=== PATIENT | male | born 1985 | race Caucasian/White ===

== ENCOUNTER 2020-07-16 11:40 | Emergency (ER) | payer OTHER, BC ==
[~2020-07-16] VITALS: Ht 182.8 cm; Wt 140.6 kg
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
--- NOTE | 2020-07-16 12:38 | Diagnostic Imaging Report ---
INDICATION: Chest wall pain. COMPARISON: None FINDINGS: Two frontal radiographic views of the chest were obtained and demonstrate normal heart size and pulmonary vascularity. The lungs are well aerated and clear. No large pleural effusion or pneumothorax is seen. The visualized osseous structures show no acute abnormalities. IMPRESSION: 1. No acute cardiopulmonary process. Dictated by: Dictated on workstation # [id number]
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
[2020-07-16] MEDS ORDERED: TRM50T PO (14:17)
[2020-07-16] MEDS ORDERED: CYCL10TA9 PO (14:17)
[2020-07-16 14:30] VITALS: BP 149/79
== END 2020-07-16 14:29 | disposition home or self-care (01) ==
LOC: ER FS 11:42
DX: S06.0X9A Concussion with loss of consciousness of unspecified duration, initial encounter (principal); S43.402A Unspecified sprain of left shoulder joint, initial encounter; S00.03XA Contusion of scalp, initial encounter; S20.219A Contusion of unspecified front wall of thorax, initial encounter; I10 Essential (primary) hypertension; R40.2360 Coma scale, best motor response, obeys commands, unspecified time; R40.2140 Coma scale, eyes open, spontaneous, unspecified time; R40.2250 Coma scale, best verbal response, oriented, unspecified time; V68.0XXA Driver of heavy transport vehicle injured in noncollision transport accident in nontraffic accident, initial encounter
CPT/HCPCS: 70450; 71046; 72125; 72128; 73030